=== PATIENT | female | born 1990 | race Caucasian/White ===

== ENCOUNTER 2023-06-24 04:09 | Inpatient (IN) | payer OTHER ==
[2023-06-19 11:21] VITALS: BMI 37.5
[2023-06-24] MEDS ORDERED: VASopressin 20 UNITS/ML VIAL IV ONE (10:26)
[2023-06-24] MEDS ORDERED: PROPOFOL 20 ML ONE ×3 (10:36→11:04)
[2023-06-24] MEDS ORDERED: MIDAZOLAM HCL 2 MG/2 ML SINGLE DOSE VIAL ONE (10:36)
[2023-06-24] MEDS ORDERED: FENTANYL CITRATE/PF 50 MCG/ML VIAL ONE ×2 (10:36→14:37)
[2023-06-24] MEDS ORDERED: SODIUM CHLORIDE 0.9% P/F 10 ML VIAL IJ ONE (10:37)
[2023-06-24] MEDS ORDERED: ceFAZolin SODIUM 1 GM VIAL ONE (10:37)
[2023-06-24] MEDS: ceFAZolin SODIUM 1 GM VIAL IVPB ONE (10:45)
[2023-06-24] MEDS ORDERED: TRANEXAMIC ACID 1000 MG/10 ML VIAL ONE (11:17)
[2023-06-24] MEDS ORDERED: PROPOFOL 40 ML ONE (12:16)
[2023-06-24] MEDS ORDERED: ONDANSETRON 4 MG/2 ML VIAL ONE (12:24)
[2023-06-24] MEDS ORDERED: BENZOIN/ALOE VERA/STORAX/TOLU 58 ML BOTTLE ONE (13:05)
[2023-06-24] MEDS ORDERED: ACETAMINOPHEN 1000 MG/100 ML BAG IVPB PRN (13:31)
[2023-06-24] MEDS: FENTANYL CITRATE/PF 50 MCG/ML VIAL ONE ×3 (13:45→14:20)
[2023-06-24] MEDS: LACTATED RINGERS SOLUTION 1,000 ML IV SCH (14:30)
[2023-06-24] MEDS ORDERED: PROMETHAZINE HCL 25 MG/1 ML VIAL IVPB PRN (14:35)
[2023-06-24] MEDS ORDERED: HYDROmorphone *PCA* 10MG/50ML DISP.SYRIN ONE (14:52)
[2023-06-24] MEDS: HYDROmorphone *PCA* 10MG/50ML DISP.SYRIN PCA SCH (15:00)
[2023-06-24] MEDS: IBUPROFEN 800 MG/8 ML IJ IVPB SCH (17:04)
[2023-06-24] MEDS: ONDANSETRON 4 MG/2 ML VIAL IVPUSH PRN (18:23)
[2023-06-25 06:23] LABS: HEMATOCRIT 27.3 % (32.4-45.2); MCH 27.7 pg (25.7-33.7); MCHC 32.9 g/dl (32.0-36.0); MEAN CELL VOLUME 84.3 fl (80-96); MEAN PLT VOLUME 7.5 fl (7.5-11.1); PLATELET COUNT 229 10^3/uL (134-434); RBC 3.24 M/mm3 (3.60-5.2); RDW 17.5 % (11.6-15.6); WHITE BLOOD COUNT 10.3 K/mm3 (4.0-10.0)
[2023-06-25] MEDS ORDERED: oxyCODONE HCL 5 MG TABLET PO PRN ×2 (08:48)
[2023-06-25] MEDS ORDERED: ONDANSETRON 4 MG/2 ML VIAL IVPB PRN (09:24)
[2023-06-25] MEDS: ACETAMINOPHEN 1000 MG/100 ML BAG IVPB ONE (10:03)
[2023-06-25] MEDS: IBUPROFEN 600 MG TABLET (FP) PO SCH ×2 (10:33→12:32)
[2023-06-25 17:59] VITALS: RESP 18
[2023-06-26 09:36] VITALS: BP 125/61; PULSE 98; TEMP 98.3
[2023-06-26] MEDS: ACETAMINOPHEN 500 MG TABLET (FP) PO PRN (10:58)
== END 2023-06-26 12:49 | disposition home or self-care (01) | DRG 743 ==
LOC: J2C 04:09 → J3W 16:14
PROVIDERS: ADMIT Obstetrics & Gynecology; ATTEND Obstetrics & Gynecology
PROC: 0UB90ZZ Excision of Uterus, Open Approach (ICD-10-PCS; principal; 2023-06-24 10:00)
DX: D25.2 Subserosal leiomyoma of uterus (principal); D64.9 Anemia, unspecified; R10.2 Pelvic and perineal pain; N92.0 Excessive and frequent menstruation with regular cycle
CPT/HCPCS: 36415; 81025; 85027; 86850; 86900; 86901; 88305-TC; 94010; 94760; J0131